=== PATIENT | female | born 1970 | race Caucasian/White ===

== ENCOUNTER 2020-02-14 21:59 | Emergency (ER) | payer BC, OTHER ==
[2020-02-14 22:03] VITALS: BP 149/78; TEMP 97.7
[2020-02-14] MEDS ORDERED: CIPROFLOXACIN-DEXAMETH 0.3-0.1% DROPS 7.5 ML BTL LEFT EAR STA (22:45)
--- NOTE | 2020-02-14 22:48 | ED ---
ENT HPI - General Chief complaint: ENT Stated complaint: Bug in Ear Time Seen by Provider: 02/14/20 22:31 Source: patient Mode of arrival: ambulatory Limitations: no limitations - History of Present Illness Initial comments: Patient is a 49-year-old female presenting to the emergency department with a chief complaint of a bug in the ear. Patient reports she was outside when she felt like an insect went into her right ear. Patient reports she attempted to get it out and scratched the inside of her right ear. Patient does report some bleeding and pain in the right ear. Patient states the right auricle appears to be red and slightly swollen. She denies any changes to her hearing in the right ear. Does report some pain with tugging of the auricle. - Related Data Allergies Allergy/AdvReac Type Severity Reaction Status Date / Time No Known Allergies Allergy Verified 02/14/20 22:03 Review of Systems ROS Statement: Those systems with pertinent positive or pertinent negative responses have been documented in the HPI. ROS Other: All systems not noted in ROS Statement are negative. Past Medical History Past Medical History: No Reported History History of Any Multi-Drug Resistant Organisms: None Reported Past Surgical History: No Surgical Hx Reported Past Psychological History: No Psychological Hx Reported Smoking Status: Never smoker Past Alcohol Use History: Occasional Past Drug Use History: None Reported General Exam Limitations: no limitations General appearance: alert, in no apparent distress Head exam: Present: atraumatic, normocephalic, normal inspection Eye exam: Present: normal appearance, PERRL, EOMI Pupils: Present: normal accommodation ENT exam: Present: normal exam, normal oropharynx, mucous membranes moist, TM's normal bilaterally (No signs of a puncture to the right tympanic membrane. No bulging or erythema.). Absent: normal external ear exam (Small abrasions noted to the external auditory canal causing some bleeding.) Neck exam: Present: normal inspection, full ROM. Absent: tenderness Respiratory exam: Present: normal lung sounds bilaterally. Absent: respiratory distress, wheezes, rales, rhonchi, stridor Cardiovascular Exam: Present: regular rate, normal rhythm, normal heart sounds Extremities exam: Present: normal inspection, full ROM, normal capillary refill. Absent: tenderness Back exam: Present: normal inspection, full ROM. Absent: tenderness Neurological exam: Present: alert, oriented X3, normal gait Psychiatric exam: Present: normal affect, normal mood Skin exam: Present: warm, dry, intact, normal color Course Vital Signs 02/14/20 02/14/20 22:00 23:08 Temperature 97.7 F Pulse Rate 110 H 90 Respiratory 20 18 Rate Blood Pressure 149/78 O2 Sat by Pulse 99 97 Oximetry Medical Decision Making - Medical Decision Making Patient is 49-year-old female presenting to the emergency department with a chief complaint of a bug in the right ear. No signs of foreign body detected in her right ear. Tympanic membrane is intact. There are small abrasions in the external auditory canal which I suspect is secondary when the patient attempted to remove a possible insect from the ear. She did have long nails that most likely scratched the surface of the ear canal. I applied some ice compress to the right ear which helped decrease the discomfort. No changes in hearing in the right ear. Patient will be started on Ciprodex eardrops to prevent an outer ear infection. She advised to follow-up with an ENT specialist if symptoms continue. Return parameters were thoroughly discussed with patient is a 17 agreeable. Case discussed with physician. Disposition Clinical Impression: Discomfort of right ear Disposition: HOME SELF-CARE Condition: Stable Instructions (If sedation given, give patient instructions): Earache (ED) Additional Instructions: Use prescribed medication as directed. Follow with her primary care. Return to emergency department if symptoms worsen. Is patient prescribed a controlled substance at d/c from ED?: No Referrals: Nonstaff,Physician [Primary Care Provider] - 1-2 days Calvin Ann MD [STAFF PHYSICIAN] - 1-2 days Time of Disposition: 22:48
[2020-02-14 23:10] VITALS: PULSE 90; RESP 18
== END 2020-02-14 23:10 | disposition home or self-care (01) ==
LOC: EC 21:59
DX: S00.411A Abrasion of right ear, initial encounter (principal); X58.XXXA Exposure to other specified factors, initial encounter
CPT/HCPCS: 99282